=== PATIENT | male | born 1960 | race Caucasian/White ===

== ENCOUNTER 2020-06-22 18:19 | Inpatient (IN) | payer OTHER, SELFPAY ==
[2020-06-22] VITALS (9 sets, daily range): BP systolic 145–178; BP diastolic 82–105; PULSE 67–97; RESP 12–20; TEMP 35.8–36.7; O2SAT 97–99; BMI 33.5
--- NOTE | ~2020-06-22 | CT_ITS ---
EXAMINATION: CTA chest PE protocol DATE: 06/22/2020 19:28 INDICATION: Shortness of breath. Mid chest pain. TECHNIQUE: Computed tomography (CT) pulmonary angiogram of the chest was performed with 100 mL Omnipa que-350 intravenous contrast. Additional 3D reconstructions utilizing coronal maximum intensity proje ction (MIP) were performed. Automated exposure control and iterative reconstruction technique were em ployed. The dose-length product was 831.52 mGy-cm. COMPARISON: None FINDINGS: Excellent contrast opacification of the pulmonary arteries. There is mild streak artifact from dense contrast in the superior vena cava and right atrium. Mild scattered respiratory motion artifact which does not significantly limit evaluation. No pulmonary embolism. Minimal discoid atelectasis at the l ing[place]. Subtle mosaic attenuation in the dependent right lower lobe with small regions of air trappin g consistent with small airway disease. There are multiple scattered calcified pulmonary nodules edilberto g with calcified bilateral hilar and mediastinal lymph nodes consistent with old granulomatous diseas e. 4 mm noncalcified left lower lobe nodule. No pneumonia, pulmonary edema pleural effusion or pneumo thorax. Heart size is normal. Atherosclerotic coronary artery calcific calcification. Small pericardi al effusion. Thoracic aorta is normal in caliber with no dissection. Likely reactive mild bilateral h ilar lymphadenopathy. Diffuse hepatic steatosis. Visualized upper abdomen is otherwise unremarkable. There are bridging osteophytes at multiple levels in the spine, consistent with diffuse idiopathic sk eletal hyperostosis (DISH). Mild anterior wedging of a few mid thoracic vertebral bodies. IMPRESSION: 1. No pulmonary embolism or other acute lung disease. 2. Small pericardial effusion. 3. Diffuse hepatic steatosis. 4. Likely reactive mild bilateral hilar lymphadenopathy. Reviewed, dictated and finalized at location H. ING SPECIALIST
--- NOTE | ~2020-06-22 | XR_ITS ---
EXAMINATION: XR chest 1V portable DATE: 06/22/2020 18:49 INDICATION: Left-sided chest pain TECHNIQUE: frontal view of the chest was obtained. COMPARISON: Chest radiograph dated 03/30/2008 FINDINGS: No focal airspace opacities, pulmonary edema, pleural effusion or pneumothorax. Cardiomediastinal [place] is within normal limits for AP technique. At least mild thoracic spondylosis. IMPRESSION: 1. No acute cardiopulmonary disease. Reviewed, dictated and finalized at location H. GE LICENSED PRACTICAL NURSE
--- NOTE | 2020-06-22 18:27 | ECG_ITS ---
Measurements Intervals [place] Rate: 87 P: 39 VA: 184 QRS: -34 QRSD: 114 T: 7 QT: 342 QTc: 414 Interpretive Statements SINUS RHYTHM WITH MARKED SINUS ARRHYTHMIA LEFT AXIS DEVIATION SUBTLE ST ELEVATION IN HIGH LATERAL LEADS BASELINE ARTIFACT- II, III, AVF ABNORMAL ECG Electronically Signed On 06-23-2020 7:37:07 TALENT ACQUISITION RELATIONSHIP MANAGER by Jim Haney D.O.
[2020-06-22 18:35] LABS: Basophils Percent Auto 0.2 % (0.2-1.2); Eosinophils Absolute Auto 0.1 K/mm3 (0-0.3); Eosinophils Percent Auto 1.1 % (0-4.4); Hematocrit 45.9 % (42.0-52.0); Hemoglobin 15.6 g/dL (14.0-18.0); Immature Granulocyte Absolute 0.01 K/mm3 (0.00-0.031); Immature Granulocyte Percent A 0.2 % (0-0.5); Lymphocytes Absolute Auto 1.47 K/mm3 (0.9-3.2); Lymphocytes Percent Auto 27.9 % (18.3-44.2); Mean Corpuscular Hemoglobin 29.3 pg (26-34); Mean Corpuscular Volume 86.3 fl (80-100); Mean Platelet Volume 10.7 fl (7.4-10.4); Monocytes Absolute Auto 0.4 K/mm3 (0.1-0.6); Monocytes Percent Auto 6.6 % (2.6-8.5); Neutrophils Absolute Auto 3.4 K/mm3 (1.3-6.7); Platelet Count Result 188 k/mm3 (150-375); Red Blood Count 5.32 M/mm3 (4.6-6.20); Red Cell Distribution Width 12.7 % (11.5-14.5); White Blood Count 5.3 K/mm3 (4.5-10.0)
--- NOTE | 2020-06-22 18:37 | ED.CHESTPAIN ---
HPI - Chest Pain General Chief Complaint: Chest Pain Stated Complaint: CP Time Seen by Provider: 06/22/20 18:28 History of Present Illness HPI narrative: Patient is a 59-year-old male with history of diabetes/hypertension/hyperlipidemia who presents the ER with central to left-sided sharp chest pain. Onset at 1730 p.m. Patient was outside tracking a [place] in the [place] when he had sudden development of the pain. Reports at its worst it was 8/10. It radiates up into his jaw/neck. It does not radiate to the shoulder or arm or back. He has not had similar pain to this. Cannot describe any aggravating or alleviating factors outside of some nitro sprays he received from EMS. Currently his pain is 5/10. Patient reports he was diaphoretic and nauseous. No previous history of RI. Related Data Home Medications Medication Instructions Recorded Confirmed dapagliflozin [Farxiga] mg 06/22/20 06/22/20 ergocalciferol (vitamin D2) 06/22/20 glimepiride mg 06/22/20 levothyroxine 06/22/20 meloxicam 06/22/20 pantoprazole PO 06/22/20 semaglutide [Ozempic] mg SUBCUT 06/22/20 Allergies Allergy/AdvReac Type Severity Reaction Status Date / Time No Known Allergies Allergy Mild Verified 03/30/08 22:02 Review of Systems Review of Systems: All systems reviewed & are unremarkable except as noted in HPI and below Constitutional: Constitutional: Denies chills, Denies fever(s) and Denies weakness Comments: + Diaphoresis ENT: Denies sore throat Comments: Rhinorrhea Cardiovascular: Cardiovascular: Reports chest pain, Denies rapid heart rate and Reports radiating jaw, neck or arm pain Respiratory: Respiratory: Reports cough (New since CP), Denies dyspnea and Denies wheezing Gastrointestinal: Gastrointestinal: Denies abdominal pain, Reports nausea and Denies vomiting Musculoskeletal: Musculoskeletal: Denies back pain and Denies muscle cramps PMFSH Past Medical History Medical History (Updated 06/22/20 @ 20:36 by Baljinder Mcdermott MD) Diabetes type 2, controlled Hyperlipidemia Hypertension Hypothyroidism Surgical History Surgical History (Updated 06/22/20 @ 18:39 by Baljinder Mcdermott MD) No pertinent past surgical history Social History Social History (Updated 06/22/20 @ 18:40 by Baljinder Mcdermott MD) Smoking status: Never smoker Alcohol use details: Occasional EtOH. Exam Narrative: Exam Narrative: GENERAL: Uncomfortable-appearing, well-nourished, and in no acute distress. HEAD: Normocephalic, atraumatic. ENT: Mucous membranes moist. CHEST: Clear to auscultation. No respiratory distress. HEART: Regular rate and rhythm. Normal peripheral pulses. ABDOMEN: Soft, nontender, nondistended. EXTREMITIES: Normal range of motion. No edema. SKIN: Warm, dry, no rash. NEURO: Alert and oriented x3. PSYCH: Normal mood and affect. Course Course Emergency Course: Patient informed of results. Pain still 09/10. Admit to hospitalist service for chest pain rule out. Vital Signs Vital signs: Vital Signs Temperature 98.1 F 06/22/20 18:14 Pulse Rate 97 06/22/20 18:14 Respiratory Rate 16 06/22/20 18:14 Blood Pressure 153/82 H 06/22/20 18:14 Pulse Oximetry 99 06/22/20 18:14 Temperature 98.1 F 06/22/20 18:14 Pulse Rate 88 06/22/20 20:16 Respiratory Rate 12 06/22/20 20:16 Blood Pressure 178/105 H 06/22/20 20:16 Pulse Oximetry 97 06/22/20 20:16 MDM - Chest Pain Lab Data Result diagrams: 06/22/20 18:29 06/22/20 18:29 Labs: Lab Results 06/22/20 06/22/20 06/22/20 Range/Units 18:29 18:29 18:29 WBC 5.3 (4.5-10.0) K/mm3 RBC 5.32 (4.6-6.20) M/mm3 Hgb 15.6 (14.0-18.0) g/dL Hct 45.9 (42.0-52.0) % MCV 86.3 (80-100) fl MCH 29.3 (26-34) pg MCHC 34.0 (32-36) g/dl RDW 12.7 (11.5-14.5) % Plt Count 188 (150-375) k/mm3 MPV 10.7 H (7.4-10.4) fl Immature Gran % (Auto) 0.2 (0-0.5) % Neut % (A
[2020-06-22] MEDS: NITROGLYCERIN OINTMENT 1 INCH DOSE TRANSDERM (18:40)
[2020-06-22] MEDS: MORPHINE SULFATE (*CRX) 4 MG/ML INJ IV PUSH (18:41)
--- NOTE | 2020-06-22 18:45 | ECG_ITS ---
Measurements Intervals [place] Rate: 72 P: 40 SC: 183 QRS: 0 QRSD: 109 T: 24 QT: 362 QTc: 398 Interpretive Statements SINUS RHYTHM WITH MARKED SINUS ARRHYTHMIA LOW QRS VOLTAGE IN PRECORDIAL LEADS SUBTLE ST ELEVATION IN HIGH LATERAL LEADS BASELINE ARTIFACT- I, III, AVL, AVF ABNORMAL ECG Electronically Signed On 06-23-2020 7:38:01 HIDE OR SKIN BUFFER by Jim Haney D.O.
[2020-06-22 18:46] LABS: Anion Gap 13 mmol/L (8-16); Blood Urea Nitrogen 17 mg/dL (9-20); Calcium 9.7 mg/dL (8.4-10.2); Carbon Dioxide 24 mmol/L (22-30); Chloride 105 mmol/L (98-107); Estimated CRCL calculation 99 ml/min; Estimated Glomerular Filt Rate > 60; Glucose 214 mg/dL (75-110); Potassium 4.1 mmol/L (3.4-5.0); Sodium 142 mmol/L (137-145)
[2020-06-22 18:47] LABS: Partial Thromboplastin Time 25.4 SECONDS (22.3-36.8); Prothrombin Time 13.6 Seconds (11.1-14.7)
[2020-06-22 19:01] LABS: Troponin I < 0.012 ng/mL (0.000-0.034)
[2020-06-22] MEDS: ONDANSETRON INJ 4 MG/2 ML VIAL IV PUSH (19:19)
--- NOTE | 2020-06-22 19:38 | PC.NURSE ---
pt states nausea is gone, states he still have a 2/10 sharp pain in his chest, but he states its tolerable. this rn instructed pt to use call light if pain increases. this rn gave him update on his labs.
--- NOTE | 2020-06-22 22:09 | ADMGEN ---
This patient, Patrick Snider Jr., was admitted to IMU Room 203-01. Patient/family oriented to hospital policies and general routines including ID bracelet, bed and alarms, visiting hours, pain management, procedures, bathroom and other care routines, personal items, smoking policy, room service/diet, and visiting hours. Information on how to activate the Rapid Response Team has been discussed. Patient/Family are encouraged to report perceived risks to care and to ask questions if they do not understand what they are told or what they should do.
--- NOTE | 2020-06-22 22:14 | ECG_ITS ---
Measurements Intervals [place] Rate: 80 P: 39 VA: 194 QRS: -7 QRSD: 92 T: 15 QT: 366 QTc: 424 Interpretive Statements SINUS RHYTHM WITH MARKED SINUS ARRHYTHMIA INFERIOR INFARCT, AGE INDETERMINATE ABNORMAL ECG Electronically Signed On 06-23-2020 7:38:46 POULTRY RAISER by Jim Haney D.O.
[2020-06-22 22:17] LABS: Troponin I 0.314 ng/mL (0.000-0.034)
--- NOTE | 2020-06-22 22:23 | PM.IMHP ---
H&P: HPI History of Present Illness Date/Time: 06/22/20 22:23 Chief complaint: chest pain Narrative: this is a pleasant 59-year-old diabetic male with known history of chronic hypertension, hyperlipidemia, and hypothyroidism who presented to the hospital this evening with severe midsternal left-sided chest pain that started while he was outside trying to track a deer. The patient was hunting and thought that he may have shot a deer and decided that he was going to look for it. As he was walking in the [place] he started to develop severe midsternal pain that seemed to radiate towards his jaw. associated symptoms at that time included nausea, diaphoresis, and mild shortness of breath. He decided to head back to his car as he was having severe chest pain. He did vomit several times. On arrival to the emergency room the patient was evaluated and initial troponin was negative. He has no previous history of heart disease has never had a cardiac angiogram or a previous stress test. He admits to me that he eats outside at restaurants often but denies any recent tobacco use. Apparently he quit smoking about 10 years ago. He does relate that he there is a strong family history of heart disease in his family. The patient's chest pain has lasted several hours and currently he is rating it as 2/10. He denies any other associated symptoms such as fever, chills, cough, abdominal pain, dysuria, hematuria, rectal bleeding, or lower extremity swelling. We been asked to admit the patient to hospital for cardiac rule out. CTA chest for PE protocol was performed in the ER [facility] and was negative for acute pulmonary embolism. Cardiology has not been consulted yet. Review of Systems Review of Systems: All systems reviewed & are unremarkable except as noted in HPI and below PMFSH Past Medical History Medical History Diabetes type 2, controlled Hyperlipidemia Hypertension Hypothyroidism Surgical History Surgical History No pertinent past surgical history Family History Family History Other Heart disease Social History Social History Smoking packs per day: 1 Smoking cigarettes per day: 20.0 Years smoked: 30 Smoking pack-years: 30.00 Smoking status: Former smoker Tobacco type: cigarettes Alcohol intake: current Drinks per week: 2 Alcohol use details: Occasional EtOH. Substance use: never Substance use type: does not use Spiritual care concerns: No Meds Home Medications and Allergies Home Medications Medication Instructions Recorded Confirmed Type dapagliflozin [Farxiga] 10 mg PO DAILY 06/22/20 06/22/20 History ergocalciferol (vitamin D2) 1,250 mcg PO DAILY 06/22/20 06/22/20 History glimepiride 4 mg PO DAILY 06/22/20 06/22/20 History levothyroxine 125 mcg PO DAILY 06/22/20 06/22/20 History meloxicam 15 mg PO DAILY 06/22/20 06/22/20 History pantoprazole 40 mg PO DAILY 06/22/20 06/22/20 History semaglutide [Ozempic] 0.5 mg SUBCUT WEEKLY 06/22/20 06/22/20 History Allergies Allergy/AdvReac Type Severity Reaction Status Date / Time No Known Allergies Allergy Mild Verified 03/30/08 22:02 Vital Signs Vital Signs - 24 hr 06/22/20 18:14 06/22/20 18:15 06/22/20 19:20 Temperature 36.7 C Pulse Rate 97 79 89 Respiratory Rate 16 12 Blood Pressure 153/82 H 145/84 H Pulse Oximetry 99 99 06/22/20 20:16 06/22/20 21:24 06/22/20 21:30 Temperature 35.8 C L Pulse Rate 88 67 73 Respiratory Rate 12 12 20 Blood Pressure 178/105 H 145/90 H 146/95 H Pulse Oximetry 97 97 99 Exam Const: General: cooperative, alert and awake Nutritional Appearance: obese Orientation/consciousness: patient oriented x3 HENMT: Head: normal to inspection General nose exam: Normal external nose present F
[2020-06-22] MEDS: SIMVASTATIN 10 MG TABLET PO (23:32)
[2020-06-22] MEDS: HYDROcodone/acetaminophen (*CRX) 5-325 MG TABLET 1 TAB PO (23:32)
[2020-06-22] MEDS: METOPROLOL SUCCINATE EXT REL 50 MG TABCR PO (23:32)
[2020-06-23] VITALS (28 sets, daily range): BP systolic 120–147; BP diastolic 45–95; PULSE 62–100; RESP 13–22; TEMP 36.1–37.2; O2SAT 94–100
--- NOTE | 2020-06-23 | ECHO_ITS ---
Patient Info Name: Patrick Snider Age: 59 years : 1960 Gender: Male Ht: 72 in Wt: 244 lbs BSA: 2.40 m2 HR: 67 bpm BP: 135 / 81 mmHg Heart Rhythm: Sinus Rhythm Technical Quality: Good Exam Date: 06/23/2020 10:56 AM Exam Location: [facility] Patient Status: Inpatient Admit Date: 06/23/2020 Staff Ordering Physician: Rohan Arias MD Stone Cutter: Trent Crystal RDCS, RT Attending Provider: Davin Shaikh MD Referring Physician: Hugo JIN; Exam Type: CA echo dop color flow w con Study Info Indications I50.9 - Heart failure, unspecified Complete two-dimensional, color flow and Doppler transthoracic echocardiogram is performed with contrast to opacify the left ventricle and to improve the deliniation of the left ventricle endocardial borders. Summary 1. Left ventricular chamber dimension is normal. 2. Left ventricular systolic function is normal, estimated at 55-60%. 3. There is mildly increased left ventricular wall thickness. 4. The left ventricular diastolic function is abnormal. 5. Right ventricular chamber dimension is mildly enlarged. 6. Right ventricular systolic function is reduced. 7. Left atrial chamber dimension is mildly enlarged. 8. There is mild mitral valve regurgitation. 9. There is mild tricuspid valve regurgitation. Left Ventricle Left ventricular chamber dimension is normal. Left ventricular systolic function is normal, estimated at 55-60%. There is mildly increased left ventricular wall thickness. The left ventricular diastolic function is abnormal. Right Ventricle Right ventricular chamber dimension is mildly enlarged. Right ventricular systolic function is reduced. Left Atria Left atrial chamber dimension is mildly enlarged. Right Atria Right atrial chamber dimension is normal. Atrial Septum Intact interatrial septum visualized by color flow imaging. Aortic Valve The aortic valve is trileaflet. There is mild aortic valve sclerosis. There is no aortic valve stenosis. There is trace aortic valve regurgitation. Pulmonic Valve The pulmonic valve is normal. There is no pulmonic valve stenosis. There is trace pulmonic regurgitation. Mitral Valve The mitral valve has normal leaflets. There is no mitral valve stenosis. There is mild mitral valve regurgitation. Tricuspid Valve The tricuspid valve leaflets are normal. There is no significant tricuspid valve stenosis. There is mild tricuspid valve regurgitation. No pulmonary hypertension, estimated pulmonary arterial systolic pressure is 20 mmHg. Pericardium/Pleural The pericardium appears normal. There is no pericardial effusion. Inferior Vena Cava Normal inferior vena cava with >50% collapse upon inspiration consistent with normal right atrial pressure, 5 mmHg. Aorta The aortic root size at the sinus of Valsalva is normal. The prox ascending aorta size is normal. Left Ventricular Outflow Tract Name Value Normal LVOT 2D LVOT Diameter 2.06 cm LVOT Doppler LVOT Peak Gradient 2 mmHg LVOT Mean Gradient 1 mmHg
[2020-06-23 00:06] LABS: Glucose Point of Care 200 (65-105)
[2020-06-23] MEDS: HEPARIN SODIUM 5,000 UNITS/ML VIAL 4000 UNITS IV PUSH (00:34)
[2020-06-23 00:48] LABS: INR 1.1; Partial Thromboplastin Time 28.2 SECONDS (22.3-36.8); Prothrombin Time 14.4 Seconds (11.1-14.7)
[2020-06-23 00:49] LABS: Alkaline Phosphatase 83 U/L (38-126); Aspartate Amino Transferase 44 U/L (17-59); Lipase 53 U/L (23-300)
[2020-06-23] MEDS: HEPARIN SOD/D5W 100 UNITS/ML 25,000 UNITS/250 ML BAG 10 UNITS IV CONT (00:57)
[2020-06-23 06:29] LABS: Glucose Point of Care 180 (65-105)
[2020-06-23 07:06] LABS: Basophils Percent Auto 0.3 % (0.2-1.2); Eosinophils Percent Auto 0.6 % (0-4.4); Hematocrit 43.8 % (42.0-52.0); Hemoglobin 14.8 g/dL (14.0-18.0); Immature Granulocyte Absolute 0.02 K/mm3 (0.00-0.031); Immature Granulocyte Percent A 0.3 % (0-0.5); Lymphocytes Absolute Auto 1.54 K/mm3 (0.9-3.2); Mean Corpuscular HGB Conc 33.8 g/dl (32-36); Mean Corpuscular Volume 85.7 fl (80-100); Mean Platelet Volume 10.6 fl (7.4-10.4); Monocytes Absolute Auto 0.5 K/mm3 (0.1-0.6); Monocytes Percent Auto 6.6 % (2.6-8.5); Neutrophils Absolute Auto 4.9 K/mm3 (1.3-6.7); Neutrophils Percent Auto 70.2 % (45.5-73.1); Platelet Count Result 196 k/mm3 (150-375); Red Blood Count 5.11 M/mm3 (4.6-6.20); Red Cell Distribution Width 12.8 % (11.5-14.5)
[2020-06-23 07:15] LABS: Anion Gap 8 mmol/L (8-16); Blood Urea Nitrogen 14 mg/dL (9-20); Calcium 8.9 mg/dL (8.4-10.2); Carbon Dioxide 26 mmol/L (22-30); Chloride 103 mmol/L (98-107); Cholesterol 117 mg/dL (0-200); Estimated CRCL calculation 110 ml/min; Estimated Glomerular Filt Rate > 60; Glucose 189 mg/dL (75-110); HDL Direct 27 mg/dL; Potassium 4.3 mmol/L (3.4-5.0); Sodium 137 mmol/L (137-145); Triglycerides 111 mg/dL (<150)
[2020-06-23 07:19] LABS: Partial Thromboplastin Time 46.1 SECONDS (22.3-36.8)
[2020-06-23 07:26] LABS: LDL Cholesterol Direct 77 mg/dL
--- NOTE | 2020-06-23 08:00 | ECG_ITS ---
Measurements Intervals [place] Rate: 66 P: 30 FL: 199 QRS: -9 QRSD: 88 T: 7 QT: 402 QTc: 423 Interpretive Statements SINUS RHYTHM INFERIOR INFARCT, AGE INDETERMINATE BASELINE WANDER- I, III ABNORMAL ECG Electronically Signed On 06-23-2020 11:16:19 DIE SINKER APPRENTICE by Jim Haney D.O.
[2020-06-23] MEDS: SODIUM CHLORIDE 0.9% IV 1,000 ML 100 ML IV CONT (08:33)
[2020-06-23] MEDS: ROSUVASTATIN 10 MG TABLET PO (08:33)
[2020-06-23] MEDS: PANTOPRAZOLE 40 MG TABLET PO (08:33)
[2020-06-23] MEDS: ASPIRIN 81 MG ENTERIC TABLET PO (08:33)
--- NOTE | 2020-06-23 09:35 | PM.CNCAR ---
Assessment and Plan Assessment and plan (1) Acute coronary syndrome: Code(s): I24.9 - Acute ischemic heart disease, unspecified Status: Acute Assessment and Plan: Patient has had an ACS. Initial EKGs concerning for high lateral injury but subsequent EKG has shown that the ST elevation has improved. Will increase his rosuvastatin up to 20 mg daily. Will check a lipid panel. Continue aspirin 81 mg daily, heparin drip, nitroglycerin paste. Will keep him NPO. After discussing the risks, benefits and alternatives, patient is agreeable to pursue a coronary angiogram to define his coronary anatomy. This will be performed later on today or sooner depending on symptoms. He did receive a dose of beta-selina last night. Will start him on Toprol XL 25 mg p.o. daily. (2) Hypothyroidism: Qualifiers: Hypothyroidism type: unspecified Qualified Code(s): E03.9 - Hypothyroidism, unspecified Code(s): E03.9 - Hypothyroidism, unspecified Status: Chronic Assessment and Plan: On replacement (3) Hypertension: Qualifiers: Hypertension type: unspecified Qualified Code(s): I10 - Essential (primary) hypertension Code(s): I10 - Essential (primary) hypertension Status: Chronic Assessment and Plan: Continue beta-selina and add KATHEIRNE inhibitor as blood pressure allows (4) Diabetes type 2, controlled: Qualifiers: Diabetes mellitus complication status: without complication Diabetes mellitus longterm insulin use: without longterm use Qualified Code(s): E11.9 - Type 2 diabetes mellitus without complications Code(s): E11.9 - Type 2 diabetes mellitus without complications Status: Chronic (5) Hyperlipidemia: Qualifiers: Hyperlipidemia type: unspecified Qualified Code(s): E78.5 - Hyperlipidemia, unspecified Code(s): E78.5 - Hyperlipidemia, unspecified Status: Chronic Assessment and Plan: Will start statin History of Present Illness History of Present Illness Consult date/time: 06/23/20 09:35 Requesting physician: Davin Shaikh MD Consult reason: chest pain Reason For Visit: chest pain Narrative: Reason for consultation: Chest pain, non-STEMI Date of service 06/23/2020 History: Patient is a pleasant 59-year-old male who has hypertension, diabetes, hyperlipidemia and hypothyroidism. He was deer hunting yesterday. He was in the process of tracking a deer in the [place] whenever he started to have some severe midsternal chest pain. It was describes as a pressure. It radiated to his jaw. He did have associated nausea, vomiting, sweatiness as well as shortness of breath. He walked to his [place] and eventually got to his truck and finally got home. He called 911 and was given nitroglycerin EN route. Chest pain did immediately improved with nitroglycerin but then quickly came back. His initial troponins were negative. They have since risen up to level 1.34. He states that he is no longer having pain but did have pain that was low-grade most of the evening. Initial EKG is concerning for high lateral injury pattern. He denies any recent syncope, presyncope, paroxysmal nocturnal dyspnea, orthopnea, edema or palpitations. Review of Systems Review of Systems: All systems reviewed & are unremarkable except as noted in HPI and below Constitutional: Constitutional: Denies weakness Eyes: Eyes: Denies blurry vision ENT: Denies Normal hearing present Cardiovascular: Cardiovascular: Reports chest pain Respiratory: Respiratory: Reports dyspnea Gastrointestinal: Gastrointestinal: Denies abdominal pain, Reports nausea and Reports vomiting Genitourinary: Genitourinary: Denies dysuria Musculoskeletal: Musculoskeletal: Denies back pain and Denies neck pain Integumentary/Breasts: Skin/Breast: Denies dry skin Neurologic: Denies headache(s) Psychiatric: Psychiatric: Denies anxiety and Denies confusion Endocrine:
[2020-06-23] MEDS: PERFLUTREN LIPID MICROSPHERES 1.5 ML VIAL DILUTED TO 10 ML TOTAL VOLUME IV PUSH (11:26)
[2020-06-23 11:59] LABS: Glucose Point of Care 136 (65-105)
[2020-06-23 12:41] LABS: Alanine Aminotransferase 49 U/L (4-50)
--- NOTE | 2020-06-23 13:51 | P.PCNCC_ITS ---
Cardiac Cath Procedure Note Date of procedure:: 06/23/20 Performing physician:: Kamron Esquivel MD Indication:: non-STEMI Brief clinical history:: this is a 59-year-old man who has no prior history of coronary disease who developed chest pain yesterday afternoon while he was deer hunting. The discomfort persisted until about midnight last night and was [id number] in intensity. His electrocardiogram did not appear to be diagnostic for acute NV. His troponin levels have risen modestly and in this setting and angiogram has been recommended. Procedure Procedure performed:: Left ventriculography coronary angiography Sedation/Medication given:: fentanyl 50 mg Versed 2 mg case start time 1:25 p.m. case end time 1346 hours sedation provided by Kasia Cruz RN, trained observer Access site:: right femoral artery Estimated blood loss:: 10-15 cc Procedure note:: patient was brought to the catheterization lab in the postabsorptive state. The right femoral triangle was prepared and draped in the usual fashion. Anesthesia was provided with 1% lidocaine infiltrated locally after this a 5 Nigerian vascular sheath was placed into the right femoral artery using modified Seldinger technique. After this left heart catheterization was carried out a 5 Nigerian angled pigtail was used to perform left ventriculography in the FRENCH projection as well as to measure left-sided hemodynamics and pullback pressures across the aortic valve. After this a 5 Nigerian FL4 catheter was used to engage inject the left coronary artery in multiple projections after this the 5 Nigerian JR4 catheter was used to engage inject the right coronary artery. The procedure was then terminated the patient was taken to the holding area for manual sheath removal. Left the electrical laboratory technician with no sign of groin hematoma there were no apparent procedural complications. Findings:: Hemodynamics: Central aortic pressure is 148/84 left ventricle 148/2 end-diastolic pressure 14. There is no pulled gradient upon pullback across the aortic valve. Left ventricle: The LV is normal in size in the FRENCH projection all segments contract appropriately the global ejection fraction is 55-60% by visual estimation left main coronary artery is nicely patent the left anterior descending is a moderate caliber artery extending down to around the apex the LAD and its branches are angiographically free of disease. Circumflex is a moderate caliber artery giving rise to a moderate to large OM1 branch there is a stump of what appears to have been a rather small OM 2 branch that is totally occluded at the trunk of the circumflex there is a very small posterior branch of the circumflex distal to this that remains patent. The right coronary artery is large in caliber dominant to the posterior circulation and angiographically free of significant disease. Conclusion:: 1. Single-vessel coronary artery disease with total occlusion of OM 2 branch of the circumflex which appears to have been the culprit for the patient's presentation last evening. 2. Right coronary dominant circulation with no other significant disease 3. normal LV function in the FRENCH projection. Kamron Esquivel MD FACC
[2020-06-23 16:34] LABS: Glucose Point of Care 143 (65-105)
--- NOTE | 2020-06-23 16:38 | PM.IMPN ---
Progress Note: A&P Assessment and Plan (1) Chest pain: Qualifiers: Chest pain type: unspecified Qualified Code(s): R07.9 - Chest pain, unspecified Code(s): R07.9 - Chest pain, unspecified Status: Acute Assessment and Plan: NSTEMI -after IV heparin, aspirin, beta-selina, statin, and nitrate patient was pain free but with troponin rising to 1.3 was taken to the seed laboratory assistant today. Findings at catheterization Gorad total occluded 1st obtuse marginal branch of the circumflex which was the culprit lesion. No further obstruction seen in the remainder of the arteries. Normal ejection fraction and no wall motion abnormalities. Plan will be medication for further disease modification (2) Hypothyroidism: Qualifiers: Hypothyroidism type: unspecified Qualified Code(s): E03.9 - Hypothyroidism, unspecified Code(s): E03.9 - Hypothyroidism, unspecified Status: Chronic Assessment and Plan: Continue levothyroxine. (3) Hypertension: Qualifiers: Hypertension type: unspecified Qualified Code(s): I10 - Essential (primary) hypertension Code(s): I10 - Essential (primary) hypertension Status: Chronic Assessment and Plan: Monitor blood pressure. Continue beta-selina and may add KATHERINE-inhibitor (4) Diabetes type 2, controlled: Qualifiers: Diabetes mellitus termite inspector insulin use: without termite inspector use Diabetes mellitus complication status: without complication Qualified Code(s): E11.9 - Type 2 diabetes mellitus without complications Code(s): E11.9 - Type 2 diabetes mellitus without complications Status: Chronic Assessment and Plan: Accu-Cheks, sliding scale and hold oral hypoglycemics (5) Hyperlipidemia: Qualifiers: Hyperlipidemia type: unspecified Qualified Code(s): E78.5 - Hyperlipidemia, unspecified Code(s): E78.5 - Hyperlipidemia, unspecified Status: Chronic Assessment and Plan: Check lipid panel. And start Crestor Subjective Date/time seen: 06/23/20 16:38 Interval history: Date of visit 06/23 59-year-old hypertensive type 2 diabetic admitted with chest pain and subsequently rising troponin. Never experienced pain like distant past. Placed on heparin, nitrate, beta-selina, and statin. Pain is subsided but seen by Cardiology and plan is cardiac catheterization today Exam Narrative: Exam Narrative: Blood pressure 144/84 pulse is 66 and regular saturating 95% on room air afebrile Pupils equal reactive to light sclera anicteric Neck supple no adenopathy no carotid bruits Lungs clear CV regular rate rhythm no murmurs Abdomen soft nontender no masses Extremities without edema distal pulse 2 + Neuro alert pleasant cooperative no focal deficits Objective Data Vital Signs Vital Signs: Vital Signs - 24 hr 06/22/20 18:14 06/22/20 18:15 06/22/20 19:20 Temperature 36.7 C Pulse Rate 97 79 89 Respiratory Rate 16 12 Blood Pressure 153/82 H 145/84 H Pulse Oximetry 99 99 06/22/20 20:16 06/22/20 21:24 06/22/20 21:30 Temperature 35.8 C L Pulse Rate 88 67 73 Respiratory Rate 12 12 20 Blood Pressure 178/105 H 145/90 H 146/95 H Pulse Oximetry 97 97 99 06/22/20 22:00 06/22/20 23:32 06/22/20 23:43 Temperature Pulse Rate 86 88 90 Respiratory Rate 20 Blood Pressure Pulse Oximetry 99 06/23/20 00:00 06/23/20 01:42 06/23/20 04:00 Temperature 37.2 C 36.3 C L Pulse Rate 100 92 83 Respiratory Rate 18 20 Blood Pressure 140/89 120/79 Pulse Oximetry 98 95 06/23/20 06:00 06/23/20 07:06 06/23/20 08:00 Temperature 36.4 C L Pulse Rate 68 74 72 Respiratory Rate 22 H Blood Pressure 135/81 Pulse Oximetry 95 06/23/20 10:00 06/23/20 12:00 06/23/20 14:00 Temperature 36.6 C 36.4 C L Pulse Rate 65 65 71 Respiratory Rate 16 16 Blood Pressure 135/86 126/94 H Pulse Oximetry 98 98 06/23/20 14:05 06/23/20 14:10 06/23/20 14:15 Temp
[2020-06-23 20:44] LABS: Glucose Point of Care 194 (65-105)
[2020-06-23] MEDS: ACETAMINOPHEN 325 MG TABLET 650 MG PO (22:09)
[2020-06-24 02:00] VITALS: PULSE 84
[2020-06-24 04:00] VITALS: BP 133/81; PULSE 84; RESP 18; RESP 20; TEMP 37.1; O2SAT 94; O2SAT 96
[2020-06-24] MEDS: ACETAMINOPHEN 325 MG TABLET 650 MG PO ×2 (04:13→10:19)
[2020-06-24] MEDS: LEVOTHYROXINE SODIUM 125 MCG TABLET PO (04:14)
[2020-06-24 05:29] LABS: Basophils Percent Auto 0.1 % (0.2-1.2); Eosinophils Absolute Auto 0.1 K/mm3 (0-0.3); Eosinophils Percent Auto 0.7 % (0-4.4); Hematocrit 43.8 % (42.0-52.0); Hemoglobin 15.2 g/dL (14.0-18.0); Immature Granulocyte Absolute 0.03 K/mm3 (0.00-0.031); Immature Granulocyte Percent A 0.3 % (0-0.5); Lymphocytes Absolute Auto 1.54 K/mm3 (0.9-3.2); Lymphocytes Percent Auto 17.9 % (18.3-44.2); Mean Corpuscular HGB Conc 34.7 g/dl (32-36); Mean Corpuscular Hemoglobin 29.3 pg (26-34); Mean Corpuscular Volume 84.4 fl (80-100); Monocytes Absolute Auto 0.7 K/mm3 (0.1-0.6); Neutrophils Absolute Auto 6.3 K/mm3 (1.3-6.7); Platelet Count Result 175 k/mm3 (150-375); Red Blood Count 5.19 M/mm3 (4.6-6.20); Red Cell Distribution Width 12.5 % (11.5-14.5); White Blood Count 8.6 K/mm3 (4.5-10.0)
[2020-06-24 05:50] LABS: Anion Gap 10 mmol/L (8-16); Blood Urea Nitrogen 10 mg/dL (9-20); Carbon Dioxide 25 mmol/L (22-30); Chloride 103 mmol/L (98-107); Estimated CRCL calculation 124 ml/min; Estimated Glomerular Filt Rate > 60; Glucose 151 mg/dL (75-110); Potassium 3.8 mmol/L (3.4-5.0); Sodium 138 mmol/L (137-145)
[2020-06-24 05:57] LABS: Hemoglobin A1C 6.9 % (<5.7)
[2020-06-24 06:00] VITALS: PULSE 86
[2020-06-24 08:00] VITALS: BP 121/78; PULSE 65; PULSE 91; RESP 16; TEMP 36.8; O2SAT 100
--- NOTE | 2020-06-24 09:01 | PM.PNCARD ---
Progress Note: A&P Assessment and Plan (1) Acute coronary syndrome: Code(s): I24.9 - Acute ischemic heart disease, unspecified Status: Acute Assessment and Plan: Continue rosuvastatin, low-dose aspirin, beta-selina. Will add low-dose lisinopril 5 mg p.o. daily both because of his ACS and diabetes. Will also add Brilinta 90 mg p.o. b.i.d. for minimum 1 year because of ACS even though no stenting was performed. He should follow up in our office He will have follow-up with our office on July 10. See chart for details (2) Hyperlipidemia: Qualifiers: Hyperlipidemia type: unspecified Qualified Code(s): E78.5 - Hyperlipidemia, unspecified Code(s): E78.5 - Hyperlipidemia, unspecified Status: Chronic Assessment and Plan: Continue rosuvastatin (3) Diabetes type 2, controlled: Qualifiers: Diabetes mellitus termite exterminator helper insulin use: without jail use Diabetes mellitus complication status: without complication Qualified Code(s): E11.9 - Type 2 diabetes mellitus without complications Code(s): E11.9 - Type 2 diabetes mellitus without complications Status: Chronic Assessment and Plan: Per Dr. Jimenez as an outpatient (4) Hypertension: Qualifiers: Hypertension type: unspecified Qualified Code(s): I10 - Essential (primary) hypertension Code(s): I10 - Essential (primary) hypertension Status: Chronic Assessment and Plan: At goal (5) Hypothyroidism: Qualifiers: Hypothyroidism type: unspecified Qualified Code(s): E03.9 - Hypothyroidism, unspecified Code(s): E03.9 - Hypothyroidism, unspecified Status: Chronic Assessment and Plan: On replacement Okay for discharge Subjective Date/time seen: 06/24/20 09:01 Interval history: 59-year-old with ACS Date of service 06/24/2020: No chest pain, shortness of breath. No groin pain. Feels okay. Wants to go home. Review of Systems Review of Systems: All systems reviewed & are unremarkable except as noted in HPI and below Constitutional: Constitutional: Denies weakness Eyes: Eyes: Denies blurry vision ENT: Reports Normal hearing present Cardiovascular: Cardiovascular: Denies chest pain Respiratory: Respiratory: Denies dyspnea Gastrointestinal: Gastrointestinal: Denies abdominal pain Genitourinary: Genitourinary: Denies dysuria Musculoskeletal: Musculoskeletal: Reports back pain and Denies neck pain Integumentary/Breasts: Skin/Breast: Denies unusual bruising Neurologic: Denies headache(s) Psychiatric: Psychiatric: Denies anxiety Endocrine: Endocrine: Denies excessive sweating Hematologic/Lymphatic: Hematologic/Lymphatic: Denies easy bruising Allergic/Immunologic: Allergic/Immunologic: Denies GI upset with certain foods Exam Narrative: Exam Narrative: Patient is awake, alert and oriented appears to be in no acute distress Const: General: comfortable and no acute distress HENMT: General nose exam: Normal nares present Eyes: Sclera: sclerae normal Neck: Neck: supple and no JVD Resp: Auscultation: clear to auscultation bilaterally Cardio: Rate: regular rate Rhythm: regular rhythm GI: GI Palp: Yes Soft to palpation Skin: General skin exam: normal color Neuro: Cognition (Neuro): normal cognition Speech: normal speech Extrem: General: normal to inspection Psych: Mental Status: mental status grossly normal Other: Chest: No reproducible chest wall pain to palpation Objective Data Vital Signs Vital Signs: Vital Signs - 24 hr 06/23/20 10:00 06/23/20 12:00 06/23/20 14:00 Temperature 36.6 C 36.4 C L Pulse Rate 65 65 71 Respiratory Rate 16 16 Blood Pressure 135/86 126/94 H Pulse Oximetry 98 98 06/23/20 14:05 06/23/20 14:10 06/23/20 14:15 Temperature Pulse Rate 74 73 71 Respiratory Rate 16 19 17 Blood Pressure 133/95 H 139/88 129/93 H Pulse Oximetry 97 97 98 06/23/20 14:
[2020-06-24 09:14] LABS: Glucose Point of Care 251 (65-105)
--- NOTE | 2020-06-24 09:23 | PM.DS ---
DS: Admitting Diagnosis Admitting Diagnosis Admitting Diagnosis: chest pain DS: Discharge Diagnosis Discharge Diagnosis (1) Non-ST elevation MD (NSTEMI): Code(s): I21.4 - Non-ST elevation (NSTEMI) myocardial infarction Status: Acute Assessment and Plan: Patient presents with chest pain on exertion. After IV heparin, aspirin, beta-selina, statin, and nitrate, patient was pain free but with troponin rising to 1.3. He was taken for a heart catheterization on 06/23 showing 100% occlusion of 1st obtuse marginal branch of the circumflex which was the culprit lesion. The remainder of the arteries were free of disease. Normal ejection fraction and no wall motion abnormalities. Plan for medical management for further disease modification (2) Chest pain: Qualifiers: Chest pain type: unspecified Qualified Code(s): R07.9 - Chest pain, unspecified Code(s): R07.9 - Chest pain, unspecified Status: Acute Assessment and Plan: As above. (3) Hypothyroidism: Qualifiers: Hypothyroidism type: unspecified Qualified Code(s): E03.9 - Hypothyroidism, unspecified Code(s): E03.9 - Hypothyroidism, unspecified Status: Chronic Assessment and Plan: Stable. We continued his levothyroxine. (4) Hypertension: Qualifiers: Hypertension type: unspecified Qualified Code(s): I10 - Essential (primary) hypertension Code(s): I10 - Essential (primary) hypertension Status: Chronic Assessment and Plan: We monitored his blood pressure closely. He was started on beta-selina and KATHERINE-inhibitor and he tolerated this well (5) Diabetes type 2, controlled: Qualifiers: Diabetes mellitus supervisor paint department insulin use: without supervisor paint department use Diabetes mellitus complication status: without complication Qualified Code(s): E11.9 - Type 2 diabetes mellitus without complications Code(s): E11.9 - Type 2 diabetes mellitus without complications Status: Chronic Assessment and Plan: A1c 6.9. He was monitored with Accu-Cheks covering with sliding scale. Glucose was elevated at times but overall remained well controlled. (6) Hyperlipidemia: Qualifiers: Hyperlipidemia type: unspecified Qualified Code(s): E78.5 - Hyperlipidemia, unspecified Code(s): E78.5 - Hyperlipidemia, unspecified Status: Chronic Assessment and Plan: TG 111, TC 117, LDL 77, HDL 27. AST/ALT normal. he was started on Crestor DS: Summary Hospital Course Reason for hospitalization: 59yo male with DM and HTN here for CP and found to have NSTEMI. Please see H&P for details Hospital Course: As above Status at Discharge Cognitive/behavioral status at discharge: PATIENT IS STABLE FOR DISCHARGE Time Spent with Patient Time attestation: Total time spent providing and/or coordinating discharge services:34 minutes Time spent: Greater than 30 minutes Exam Narrative: Exam Narrative: Complains of back pain but this is chronic. No further CP. Up walking in the room AF 98.3 121/78 65 16 100% ra Gen - NARD Chest - CTA bilaterally, nml RR CV - RRR S1/S2 Abd - Soft, NT/ND, Positive BS Ext - No pedal edema Neuro - Alert and oriented. Nonfocal exam. Psych - Nml mood and affect Skin - Warm and dry DS: Data Data Completed and Pending Labs on day of discharge: Labs from last 24 hours 06/24/20 06/24/20 06/24/20 08:58 04:46 04:46 WBC 8.6 RBC 5.19 Hgb 15.2 Hct 43.8 MCV 84.4 MCH 29.3 MCHC 34.7 RDW 12.5 Plt Count 175 MPV 11.0 H Immature Gran % (Auto) 0.3 Neut % (Auto) 73.0 Lymph % (Auto) 17.9 L [place] % (Auto) 8.0 Eos % (Auto) 0.7 Baso % (Auto) 0.1 L Lymph # (Auto) 1.54 [place] # (Auto) 0.7 H Eos # (Auto) 0.1 Baso # (Auto) 0.0 Abs Immat Gran (auto) 0.03 Absolute Neuts (auto) 6.3 Absolute Nucleated RBC 0.0 Nucleated RBC % 0.0 [place]
[2020-06-24 10:12] VITALS: PULSE 94
[2020-06-24] MEDS: METOPROLOL SUCCINATE EXT REL 25 MG TABCR PO (10:12)
[2020-06-24] MEDS: ASPIRIN 81 MG ENTERIC TABLET PO (10:12)
[2020-06-24] MEDS: ROSUVASTATIN 10 MG TABLET 20 MG PO (10:13)
[2020-06-24] MEDS: PANTOPRAZOLE 40 MG TABLET PO (10:13)
[2020-06-24] MEDS: lisinopriL 5 MG TABLET PO (10:14)
[2020-06-24] MEDS: TICAGRELOR 90 MG TABLET PO (10:14)
[2020-06-24] MEDS: INSULIN ASPART (*BKC) 100 UNITS/ML SUB-Q (10:16)
== END 2020-06-24 11:32 | disposition home or self-care (01) | DRG 282 ==
LOC: ANHED 20:36 → ANHIMU 20:58
PROVIDERS: Internal Medicine; Specialist; Admitting Provider Family Medicine; Emergency Provider Emergency Medicine; PCP Internal Medicine Geriatric Medicine; Visit Provider Internal Medicine
PROC: 4A023N7 Measurement of Cardiac Sampling and Pressure, Left Heart, Percutaneous Approach (ICD-10-PCS; CPT 93452; principal; 2020-06-23 13:00)
DX: I21.4 Non-ST elevation (NSTEMI) myocardial infarction (principal); E11.9 Type 2 diabetes mellitus without complications; E03.9 Hypothyroidism, unspecified; I10 Essential (primary) hypertension; E78.5 Hyperlipidemia, unspecified; Z28.21 Immunization not carried out because of patient refusal; Z79.899 Other long term (current) drug therapy; Z82.49 Family history of ischemic heart disease and other diseases of the circulatory system; Z87.891 Personal history of nicotine dependence
CPT/HCPCS: 36415; 71045; 71275; 80048; 80061; 83036; 83690; 84075; 84450; 84460; 84484; 85025; 85610; 85730; 93005; 93306; 93458; 96374; 96375; 99285; A9270; C1769; C1887; C1894; C8929; G0378; J0131; J1644; J1815; J2250; J2270; J2405; J3010; J7030; J7040; J7050; Q9957; Q9967

== ENCOUNTER 2023-11-03 17:20 | Emergency (ER) | payer OTHER, SELFPAY ==
--- NOTE | ~2023-11-03 | XR_ITS ---
EXAMINATION: XR chest 2V DATE: 11/03/2023 18:44 INDICATION: Dizziness and weakness TECHNIQUE: frontal and lateral views of the chest were obtained. COMPARISON: None FINDINGS: Mild streaky atelectasis at the left lung base. No other airspace opacities, pulmonary edema, pleural effusion or pneumothorax. The cardiomediastinal silhouette is normal. Mild thoracic spondylosis with bridging osteophytes at multiple levels consistent with diffuse idiopathic skeletal hyperostosis (DI SH). IMPRESSION: 1. Mild lingular atelectasis. No other acute cardiopulmonary disease. Reviewed, dictated and finalized at location A.
--- NOTE | ~2023-11-03 | CT_ITS ---
EXAMINATION: CT brain wo con DATE: 11/03/2023 18:46 INDICATION: Dizziness, headache and blurred vision TECHNIQUE: Computed tomography (CT) of the head was performed without intravenous contrast. Sagittal and coronal reconstructions were performed. The mA was adjusted according to patient size. Iterative reconstruction technique was employed. The dose-length product was 681.00 mGy-cm. COMPARISON: None FINDINGS: No acute intracranial hemorrhage, acute infarction or abnormal extra axial fluid collection. Ventricl es are normal and symmetric. No mass/mass effect. Mild mucosal thickening at the inferior left maxill zaheer sinus. The orbits and mastoid air cells are normal. IMPRESSION: 1. Normal brain. No acute intracranial process. Reviewed, dictated and finalized at location A.
[2023-11-03 17:25] VITALS: BP 131/102; PULSE 113; RESP 20; TEMP 36.4; O2SAT 96
[2023-11-03 17:27] LABS: Glucose Point of Care 359 mg/dl (65-105)
--- NOTE | 2023-11-03 18:04 | ED.GENADULT ---
HPI - General Adult General Chief complaint: Weakness <PARTH Joel Last Filed: 11/03/23 19:01> Stated complaint: fatigue <PARTH Joel Last Filed: 11/03/23 19:01> Time Seen by Provider: 11/03/23 18:04 <PARTH Joel Last Filed: 11/03/23 19:01> Focused HPI: Patient is a 63 y/o male, with PMH of DM, who presents to the ED with c/o dizziness and general malaise. Patient reports he has not been feeling well since Tuesday, states overall he feels weak and fatigued. He c/o dizziness with movement/standing up/position changes, worse with opening his eyes, nausea, slight blurry vision. He also reports having a mild headache. Denies abdominal pain, vomiting, cough or cold symptoms, focal weakness or numbness, vision loss, confusion, slurred speech. States he has been eating and drink normally. States he has not taken his normal home medications or checked his BG in the past 4 days due to not feeling well. Denies history of similar symptoms. Denies history of vertigo. Denies ear pain or tinnitus. GENERAL: Mildly ill-appearing, well-nourished, and in no acute distress. HEAD: Normocephalic, atraumatic. EYES: PERRL/EOMI, conjunctiva clear. No appreciable nystagmus. ENT: Trace fluid behind R TM. No evidence of AOM. Normal L TM. No significant cerumen. CHEST: Clear to auscultation. ?No respiratory distress. HEART: Regular rate and rhythm.? NEURO: ?Alert and oriented x3. Strength 5/5 in upper and lower extremities bilaterally. Equal marketing project specialist strength bilaterally. No pronator drift Patient screened in triage and initial orders placed.? ?Additional care and disposition to be based upon?diagnostic testing and treatment. <PARTH Joel Last Filed: 11/03/23 19:01> Focused HPI: Patient is a 63 y/o male, with PMH of DM, who presents to the ED with c/o dizziness and general malaise. Patient reports he has not been feeling well since [place], states overall he feels weak and fatigued. He c/o dizziness with movement/standing up/position changes, worse with opening his eyes, nausea. When asked to specify his dizziness sensation, patient admits that it is feeling lightheaded, as he passed and denies any room spinning sensation. He also reports having a mild headache. Denies abdominal pain, vomiting, cough or cold symptoms, focal weakness or numbness, vision loss, confusion, slurred speech. States he has been eating and drink normally. States he has not taken his normal home medications or checked his BG in the past 4 days due to not feeling well. Denies history of similar symptoms. Denies history of vertigo. Denies ear pain or tinnitus. GENERAL: Mildly ill-appearing, well-nourished, and in no acute distress. HEAD: Normocephalic, atraumatic. EYES: PERRL/EOMI, conjunctiva clear. No appreciable nystagmus. ENT: Trace fluid behind R TM. No evidence of AOM. Normal L TM. No significant cerumen. CHEST: Clear to auscultation. ?No respiratory distress. HEART: Regular rate and rhythm.? NEURO: ?Alert and oriented x3. Strength 5/5 in upper and lower extremities bilaterally. Equal marketing project specialist strength bilaterally. No pronator drift Patient screened in triage and initial orders placed.? ?Additional care and disposition to be based upon?diagnostic testing and treatment. <Elma Casillas MD - Last Filed: 11/03/23 20:35> Source: patient <Ema Crandall PA-C - Last Filed: 11/03/23 19:01> Mode of arrival: ambulatory <Ema Crandall PA-C - Last Filed: 11/03/23 19:01> Limitations: no limitations <Ema Crandall PA-C - Last Filed: 11/03/23 19:01> Related Data Home medications: Home Medications Medication Instructions Recorded Confirmed dapagliflozin propanediol 10 mg 10 mg PO DAILY 06/22/20 06/22/20 tablet (Farxiga) ergocalciferol (vitamin D2) 1,250 1,250 mcg PO DAILY 06/22/20 06/22/20 mcg (50,000 unit) capsule glimepiride 4 mg tablet 4 mg PO DA
--- NOTE | 2023-11-03 18:06 | ECG_ITS ---
Measurements Intervals Kramer Rate: 91 P: 52 IA: 204 QRS: -8 QRSD: 97 T: 41 QT: 341 QTc: 421 Interpretive Statements SINUS RHYTHM PREVIOUS INFERIOR MYOCARDIAL INFARCTION ABNORMAL ECG COMPARED TO ECG 06/23/2020 11:06:06 NO SIGNIFICANT CHANGES Electronically Signed On 11-04-2023 7:40:37 CDT by Kamron Esquivel M.D.
[2023-11-03 18:36] LABS: Basophils Percent Auto 0.4 % (0.2-1.2); Eosinophils Absolute Auto 0.1 K/mm3 (0-0.3); Eosinophils Percent Auto 1.7 % (0-4.4); Hematocrit 48.5 % (42.0-52.0); Hemoglobin 16.6 g/dL (14.0-18.0); Immature Granulocyte Absolute 0.03 K/mm3 (0.00-0.031); Immature Granulocyte Percent A 0.4 % (0-0.5); Lymphocytes Absolute Auto 1.64 K/mm3 (0.9-3.2); Lymphocytes Percent Auto 19.9 % (18.3-44.2); Mean Corpuscular HGB Conc 34.2 g/dl (32-36); Mean Corpuscular Hemoglobin 29.9 pg (26-34); Mean Corpuscular Volume 87.2 fl (80-100); Mean Platelet Volume 11.1 fl (7.4-10.4); Monocytes Absolute Auto 0.6 K/mm3 (0.1-0.6); Monocytes Percent Auto 7.3 % (2.6-8.5); Neutrophils Absolute Auto 5.8 K/mm3 (1.3-6.7); Neutrophils Percent Auto 70.3 % (45.5-73.1); Platelet Count Result 175 k/mm3 (150-375); Red Blood Count 5.56 M/mm3 (4.6-6.20); Red Cell Distribution Width 13.1 % (11.5-14.5); White Blood Count 8.2 K/mm3 (4.5-10.0)
[2023-11-03 18:51] LABS: Alanine Aminotransferase 23 U/L (6-50); Albumin Level 4.3 g/dL (3.5-5.1); Alkaline Phosphatase 73 U/L (38-126); Anion Gap 9 mmol/L (4-12); Aspartate Amino Transferase 21 U/L (17-59); Blood Urea Nitrogen 17 mg/dL (9-20); Calcium 9.7 mg/dL (8.4-10.2); Carbon Dioxide 22 mmol/L (22-30); Chloride 104 mmol/L (98-107); Estimated CRCL calculation 81 ml/min; Estimated Glomerular Filt Rate > 60; Glucose 356 mg/dL (65-110); Potassium 3.8 mmol/L (3.4-5.0); Sodium 135 mmol/L (137-145)
[2023-11-03 18:52] LABS: Prothrombin Time 13.3 Seconds (11.1-14.7)
[2023-11-03 18:56] LABS: Partial Thromboplastin Time 30.6 Seconds (22.3-36.8)
[2023-11-03 19:01] LABS: Troponin I < 0.012 ng/mL (0.000-0.034)
[2023-11-03] MEDS: ONDANSETRON INJ 4 MG/2 ML VIAL IV PUSH (19:07)
[2023-11-03] MEDS: MECLIZINE HCL 25 MG TABLET PO (19:07)
[2023-11-03 19:12] LABS: Influenza A QL RT-PCR Negative (Negative); Influenza B QL RT-PCR Negative (Negative); RSV RNA, RT-PCR Negative (Negative); SARS-CoV-2 RNA PCR Negative (Negative)
[2023-11-03 20:01] LABS: Appearance Urine Clear (Clear); Bilirubin Urine Negative (Negative); Blood Urine Negative (Negative); Color Urine Yellow (Yellow); Glucose Urine UA 3+ mg/dL (Negative); Ketones Urine Negative (Negative); Leukocyte Esterase Ur Negative LEU/UL (Negative); Nitrate Urine Negative (Negative); Protein Urine Negative (Negative); Urobilinogen Urine 0.2 mg/dL (<2.0)
[2023-11-03 20:07] LABS: Specific Grav Ur 1.045 (1.001-1.035)
[2023-11-03 20:08] LABS: Add Urine Microscopic? NO
[2023-11-03] MEDS: SODIUM CHLORIDE 0.9% IV 1,000 ML 999 ML IV CONT (20:26)
[2023-11-03 20:30] VITALS: BP 108/78; PULSE 88; RESP 16; O2SAT 96
[2023-11-03 20:59] LABS: Hemoglobin A1C 8.6 % (<5.7)
== END 2023-11-03 21:22 | disposition home or self-care (01) ==
PROVIDERS: Physician Assistant; Emergency Provider Emergency Medicine; PCP Internal Medicine Geriatric Medicine
DX: R53.81 Other malaise (principal); Z20.822 Contact with and (suspected) exposure to COVID-19; I10 Essential (primary) hypertension; E11.9 Type 2 diabetes mellitus without complications; E78.5 Hyperlipidemia, unspecified; E03.9 Hypothyroidism, unspecified; Z87.891 Personal history of nicotine dependence; Z79.85 Long-term (current) use of injectable non-insulin antidiabetic drugs; Z79.82 Long term (current) use of aspirin; Z79.84 Long term (current) use of oral hypoglycemic drugs; R94.31 Abnormal electrocardiogram [ECG] [EKG]
CPT/HCPCS: 36415; 70450; 71046; 80053; 81003; 82010; 82948; 83036; 83735; 84484; 85025; 85610; 85730; 87637; 93005; 96361; 96374; 99284; A9270; J2405; J7030